=== PATIENT | female | born 1970 | race Caucasian/White ===

== ENCOUNTER → 2019-12-24 08:20 | Outpatient (CLI) | payer MEDICARE | END | disposition home or self-care (01) | LOC: D.MRI 08:20 | PROVIDERS: ATTEND Anesthesiology | DX: M50.30 Other cervical disc degeneration, unspecified cervical region (principal) ==

== ENCOUNTER → 2019-12-27 09:12 | Outpatient (CLI) | payer MEDICARE | END | disposition home or self-care (01) | LOC: D.CT 09:00 | PROVIDERS: ATTEND Anesthesiology | DX: M50.30 Other cervical disc degeneration, unspecified cervical region (principal) ==